=== PATIENT | male | born 1955 | race Caucasian/White ===

== ENCOUNTER 2020-10-25 11:55 | Inpatient (IN) | payer MEDICARE ==
[~2020-10-25] VITALS: Ht 170.2 cm; Wt 77.3 kg
[2020-10-25 13:03] LABS: BASOPHILS ABSOLUTE AUTO 0.05 K/mm3 (0.00-0.23); BASOPHILS PERCENT AUTO 0 % (0-2); EOSINOPHILS ABSOLUTE AUTO 0.01 K/mm3 (0.00-0.68); EOSINOPHILS PERCENT AUTO 0 % (0-6); Hemoglobin 16.5 g/dL (13.5-17.5); IMMATURE GRAN ABSOLUTE AUTO 0.11 K/mm3 (0.00-0.10); IMMATURE GRAN PERCENT AUTO 1 % (0-1); LYMPHOCYTES ABSOLUTE AUTO 0.77 K/mm3 (0.84-5.20); LYMPHOCYTES PERCENT AUTO 4 % (21-46); MONOCYTES ABSOLUTE AUTO 1.55 K/mm3 (0.16-1.47); MONOCYTES PERCENT AUTO 8 % (4-13); Mean Corpuscular HGB Conc 33.7 g/dL (31.5-36.5); Mean Corpuscular Volume 83 fL (80-100); Mean Platelet Volume 9.9 fL (9.1-12.4); NEUTROPHILS ABSOLUTE AUTO 18.27 K/mm3 (1.96-9.15); NEUTROPHILS PERCENT AUTO 88 % (41-73); Platelet Count 285 K/mm3 (150-400); RDW Coefficient Variation 12.6 % (11.7-14.2); RDW Standard Deviation 38.5 fL (35.1-46.3); White Blood Cell Count 20.76 K/mm3 (4.00-11.30)
[2020-10-25 13:22] LABS: Alanine Aminotransfer (ALT/SGP 19 U/L (12-78); Albumin, Blood 3.8 g/dL (3.4-5.0); Albumin/Globulin Ratio 0.9 (0.8-1.8); Alk Phos 67 U/L (50-136); Anion Gap 8 mmol/L (6-16); Aspartate Aminotrans (AST/SGOT 9 U/L (12-37); Bilirubin, Total 0.9 mg/dL (0.1-1.0); Blood Urea Nitrogen 10 mg/dL (8-24); Bun/Creatinine Ratio 9.5 (12.0-20.0); CO2, Blood 25 mmol/L (21-32); Calcium, Blood 9.1 mg/dL (8.5-10.1); Chloride, Blood 103 mmol/L (98-108); Creatinine, Blood 1.05 mg/dL (0.60-1.20); Globulin, Blood 4.1 g/dL (2.2-4.0); Glomerular Filtration Rate >60 (60-); Glucose, Blood 129 mg/dL (70-99); Potassium, Blood 3.8 mmol/L (3.5-5.5); Sodium, Blood 136 mmol/L (136-145); Total Protein, Blood 7.9 g/dL (6.4-8.2)
[2020-10-25 15:05] LABS: Source, Urine Voided
[2020-10-25] MEDS ORDERED: ATOR20 (15:07)
[2020-10-25] MEDS ORDERED: TAMS.4ER PO (15:07)
[2020-10-25 15:17] LABS: Appearance, Urine Clear (Clear); Bilirubin, Urine Neg (Neg); Blood, Urine 4+ (Neg); Color, Urine Yellow (P-Yellow); Glucose Qualitative, Urine Neg (Neg); Ketones, Urine Neg (Neg); Leukocyte Esterase, Urine 1+ (Neg); Nitrite, Urine Neg (Neg); Protein, Urine 2+ (Neg); Urobilinogen, Urine NORM (Normal)
[2020-10-25 15:43] LABS: Bacteria Few /hpf; Squamous Epithelial Cells Few /hpf (Few)
[2020-10-25] MEDS ORDERED: ATORVASTATIN CA20 MG PO (16:29)
--- NOTE | 2020-10-25 16:33 | NUR ---
PT RECENTLY HERE FROM ER [facility]IA [facility], REPORTS VOIDING RECENTLY. PT ABLE TO STAND AND GET SELF UNDRESSED INTO GOWN WITHOUT DIFFICULTY. History, Chart, Medications and Allergies reviewed before start of procedure. Lungs clear T/O to Auscultation. Patient confirms NPO status and agrees with scheduled surgery. Pre-Op teaching done. Pt verbalizes understanding.
--- NOTE | 2020-10-25 20:24 | NUR ---
PT ARRIVED FROM PACU AT APPROX 2014. POD#0 FOR RT SHERYL COLECTOMY. PT DROWSY, WAKING SPONTANEOUSLY. VS WNL. MIDLINE INDER C/D/I. HYPOACTIVE BT THROUGHOUT. LUNGS SOUNDS CLEAR. IVF INFUSING.
[2020-10-26 06:23] LABS: BASOPHILS ABSOLUTE AUTO 0.02 K/mm3 (0.00-0.23); BASOPHILS PERCENT AUTO 0 % (0-2); EOSINOPHILS PERCENT AUTO 0 % (0-6); Hematocrit 45.3 % (37.0-53.0); Hemoglobin 15.1 g/dL (13.5-17.5); IMMATURE GRAN ABSOLUTE AUTO 0.06 K/mm3 (0.00-0.10); IMMATURE GRAN PERCENT AUTO 0 % (0-1); LYMPHOCYTES ABSOLUTE AUTO 0.78 K/mm3 (0.84-5.20); LYMPHOCYTES PERCENT AUTO 4 % (21-46); MONOCYTES ABSOLUTE AUTO 0.92 K/mm3 (0.16-1.47); MONOCYTES PERCENT AUTO 5 % (4-13); Mean Corpuscular HGB 28.5 pg (26.0-34.0); Mean Corpuscular HGB Conc 33.3 g/dL (31.5-36.5); Mean Corpuscular Volume 86 fL (80-100); Mean Platelet Volume 10.1 fL (9.1-12.4); NEUTROPHILS ABSOLUTE AUTO 16.16 K/mm3 (1.96-9.15); NEUTROPHILS PERCENT AUTO 90 % (41-73); Platelet Count 260 K/mm3 (150-400); RDW Coefficient Variation 12.6 % (11.7-14.2); White Blood Cell Count 17.94 K/mm3 (4.00-11.30)
[2020-10-26 06:43] LABS: Anion Gap 6 mmol/L (6-16); Blood Urea Nitrogen 10 mg/dL (8-24); Bun/Creatinine Ratio 11.3 (12.0-20.0); CO2, Blood 25 mmol/L (21-32); Calcium, Blood 8.5 mg/dL (8.5-10.1); Chloride, Blood 102 mmol/L (98-108); Creatinine, Blood 0.89 mg/dL (0.60-1.20); Glomerular Filtration Rate >60 (60-); Glucose, Blood 145 mg/dL (70-99); Potassium, Blood 4.1 mmol/L (3.5-5.5); Sodium, Blood 133 mmol/L (136-145)
--- NOTE | 2020-10-26 14:14 | NUR ---
RELEASE UPDATE: PATIENT REQUESTED UPDATE TO HIS VERBAL RELEASE CONSENT FORM. UPDATE CONFIRMED WITH PATIENT AND WITH PARTNER MANAGER. FORM IN PATIENT BINDER.
--- NOTE | 2020-10-26 19:28 | NUR ---
END OF SHIFT: PATIENT RESTED MOST OF THE DAY. UP TO CHAIR X2 FOR 10 MIN AND 30 MIN. MILD CONFUSION PERSISTED THROUGHOUT THE DAY. IS FRIENDS WITH PATIENT IN 227 AND THEY VISITED FOR A FEW MINUTES THIS AFTERNOON. PATIENT BECAME RUDDIER IN COMPLEXION, ASSESSED FOR AGITATION AND TREMORS - NONE PRESENT. DENIES ETOH, SAYS HE USES MARIJUANA. DR CHECKED DRESSING, DID NOT CHANGE. NEW ABX HUNG AT 1800 WITH NEW TUBING. PATIENT STABLE THROUGHOUT SHIFT.
--- NOTE | 2020-10-26 19:40 | NUR ---
SHIFT SUMMARY PT POD #1 FOR HEMICOLECTOMY. INDER DRESSING AT MIDLINE SHOWS DRAINAGE AND SEEN BY SURGEON. NEEDS ENCOURAGEMENT TO GET UP AND AMBULATE. ENCOURAGED TO COUGH AND DEEP BREATHE. HTN BROUGHT TO THE ATTENTION OF THE HOSPITALIST AND ADVISED TO CONTINUE TO MONITOR. PT RESTING COMFORTABLY WITH HIS CALL LIGHT IN REACH.
--- NOTE | 2020-10-26 23:56 | NUR ---
PT COMPLAINING OF INDIGESTION. PT PUT HEAD OF BED UP AND INSTANTLY FELT LIKE HE HAD TO VOMIT. EMESIS BAG GIVEN TO PT AND PT HAD EMESIS X1 LIGHT GREEN/MUCOUS IN APPEARANCE. PT VERBALIZED HE FELT BETTER AND DECLINED THE NEED FOR NAUSEA MEDS. PT REPORTS SOME BURPING, BUT NO FLATUS. BTS X4 QUADRANTS REMAIN HYPOACTIVE AND ABD REMAINS MILDLY DISTENDED. WILL CONT TO MONITOR.
--- NOTE | 2020-10-27 04:10 | NUR ---
SHIFT SUMMARY PT REPORTS NOT FEELING WELL T/O NIGHT. EMESIS X2-LIGHT GREEN/MUCOUS. CONT TO DENY FLATUS, BUT IS OCCASSIONALLY BURPING. ABDOMEN REMAINS MILDLY DISTENDED AND HYPOACTIVE. TORADOL FOR PAIN MANAGEMENT. INDER DRESSING TO MIDLINE REMAINS UNCHANGED. IVF INFUSING PER ORDERS. PT SLOWLY JESSE ICE CHIPS. USING URINAL AT BEDSIDE. CALL LIGHT WITHIN REACH.
--- NOTE | 2020-10-27 10:23 | NUR ---
BP PLACED MSG OUT TO DR WINSLOW TO DISCUSS BP. ORDERS OBTAINED.
--- NOTE | 2020-10-27 16:26 | NUR ---
DR CARMENTRATE IN TO SEE PT.
--- NOTE | 2020-10-27 16:37 | NUR ---
DR WINSLOW IN TO SEE PT.
--- NOTE | 2020-10-27 17:59 | NUR ---
SUMMARY THIS AFTERNOON, PT WAS FOUND TO BE TACHY AT 134 AND HYPERTENSIVE. EKG SHOWED AFIB W/RVR IN 160S. OBTAINED ORDERS FOR HOSPITALIST CONSULT. DR ARANA CONSULTED AND PLACED ORDERS. PT PLACED ON TELE AND METOPROLOL GIVEN PER ORDERS. ORDERS OBTAINED FOR VASOTEC. ONE DOSE GIVEN OF VASOTEC PER ORDERS. [id number] AT THIS TIME PER CONCRETE CURER. PROTONIX GIVEN AND IV ABX INFUSING PER ORDERS. PT DENIES ANY NEEDS AT THIS TIME.
--- NOTE | 2020-10-27 18:34 | NUR ---
BP AND HR BP 171/119. HR 122. ADMINISTERED THIRD DOSE OF METOPROLOL PER ORDERS. REPORTED TO DR ARANA. IF HR CONTINUES TO BE GREATER THAN 120, ADVISED THAT NOC SHIFT TRANSFER TO PCU FOR FRANKLYN BETH.
--- NOTE | 2020-10-27 19:24 | NUR ---
REPORT GIVEN TO ONCOMING SHIFT.
--- NOTE | 2020-10-27 20:07 | NUR ---
BP AND HR: PT HR CONT TO TREND 120-130'S AFTER VASOTEC GIVEN. BP REMAINS ELEVATED 186/106. PT REP CHEST PRESSURE, DENIES SOB CO CHEST PAIN. CALL PLACED TO AL, PT VITALS, AND MEDS GIVEN REVIEWED. NEW ORDER FOR PRN LABETALOL RECEIVED. WILL CONT TO MONITOR CLOSELY.
[2020-10-28 04:20] LABS: BASOPHILS ABSOLUTE AUTO 0.04 K/mm3 (0.00-0.23); BASOPHILS PERCENT AUTO 0 % (0-2); EOSINOPHILS ABSOLUTE AUTO 0.05 K/mm3 (0.00-0.68); EOSINOPHILS PERCENT AUTO 0 % (0-6); Hematocrit 50.9 % (37.0-53.0); Hemoglobin 17.4 g/dL (13.5-17.5); IMMATURE GRAN ABSOLUTE AUTO 0.08 K/mm3 (0.00-0.10); IMMATURE GRAN PERCENT AUTO 1 % (0-1); LYMPHOCYTES ABSOLUTE AUTO 1.36 K/mm3 (0.84-5.20); LYMPHOCYTES PERCENT AUTO 8 % (21-46); MONOCYTES ABSOLUTE AUTO 1.58 K/mm3 (0.16-1.47); MONOCYTES PERCENT AUTO 9 % (4-13); Mean Corpuscular HGB 28.4 pg (26.0-34.0); Mean Corpuscular HGB Conc 34.2 g/dL (31.5-36.5); Mean Corpuscular Volume 83 fL (80-100); Mean Platelet Volume 9.9 fL (9.1-12.4); NEUTROPHILS ABSOLUTE AUTO 13.78 K/mm3 (1.96-9.15); NEUTROPHILS PERCENT AUTO 82 % (41-73); Platelet Count 364 K/mm3 (150-400); RDW Coefficient Variation 12.7 % (11.7-14.2); Red Blood Cell Count 6.13 M/mm3 (4.30-5.90); White Blood Cell Count 16.89 K/mm3 (4.00-11.30)
[2020-10-28 04:44] LABS: Magnesium, Blood 2.4 mg/dL (1.6-2.4)
[2020-10-28 04:47] LABS: Alanine Aminotransfer (ALT/SGP 26 U/L (12-78); Albumin, Blood 2.9 g/dL (3.4-5.0); Albumin/Globulin Ratio 0.6 (0.8-1.8); Alk Phos 79 U/L (50-136); Anion Gap 5 mmol/L (6-16); Aspartate Aminotrans (AST/SGOT 17 U/L (12-37); Bilirubin, Total 1.2 mg/dL (0.1-1.0); Blood Urea Nitrogen 14 mg/dL (8-24); Bun/Creatinine Ratio 18.5 (12.0-20.0); CO2, Blood 25 mmol/L (21-32); Calcium, Blood 8.9 mg/dL (8.5-10.1); Chloride, Blood 97 mmol/L (98-108); Creatinine, Blood 0.76 mg/dL (0.60-1.20); Globulin, Blood 4.5 g/dL (2.2-4.0); Glomerular Filtration Rate >60 (60-); Glucose, Blood 121 mg/dL (70-99); Phosphorus, Blood 2.4 mg/dL (2.5-4.9); Potassium, Blood 3.8 mmol/L (3.5-5.5); Sodium, Blood 127 mmol/L (136-145); Total Protein, Blood 7.4 g/dL (6.4-8.2)
--- NOTE | 2020-10-28 06:10 | NUR ---
POD 3 S/P HEMICOLECTOMY. PT BP AND HR REMIANED ELEVATED T/O NIGHT. HR TRENDING AFIB 90'S THIS AM. SYSTOLIC BP IMPROVED SOME AFTER PRN LABETALOL. PT CONT TO REP CHEST PRESSURE, DENIES CHEST PAIN/SOB. INDER DRESSING INTACT W/NO CHANGES IN DRNG. PAIN MGD PER EMAR. NO CHANGES IN ABD DISTENTION, BT HYPO, PT REP NO FLATUS YET, NO C/O N/V. IVF AND ABX CONT PER EMAR.
--- NOTE | 2020-10-28 17:53 | NUR ---
AT ABOUT 1125 TELE CALLED THIS RN, PT CONVERTED BACK TO NSR, HR IS 67. PT CONTINUES TO DENY CP, VSS. WILL CTM
--- NOTE | 2020-10-28 17:55 | NUR ---
DR. ARANA MADE AWARE OF CONVERSION TO NSR AT 1140
--- NOTE | 2020-10-28 17:56 | NUR ---
SUMMARY: PT IS POD3 SHERYL COLECTOMY. VSS, TELE WNL TODAY. PT DENIES CP, SOB. SURGICAL SITES ARE WNL. PT HAS AMBULATED IN HALLS TODAY AND SAT UP IN CHAIR. PT REPORTS PASSING FLATUS AND TOLERATED FULL LIQ DIET TONIGHT. MEFOXIN INFUSING, OTHERWISE FLUIDS AT TKO. 25MCG OF FENTANYL MANAGING PAIN WELL. NO ACUTE SAFETY CONCERNS AT THIS TIME. WILL REPORT TO RUI MIGUEL.
[2020-10-29 04:59] LABS: BASOPHILS ABSOLUTE AUTO 0.03 K/mm3 (0.00-0.23); BASOPHILS PERCENT AUTO 0 % (0-2); EOSINOPHILS ABSOLUTE AUTO 0.14 K/mm3 (0.00-0.68); EOSINOPHILS PERCENT AUTO 1 % (0-6); Hematocrit 47.4 % (37.0-53.0); Hemoglobin 16.3 g/dL (13.5-17.5); IMMATURE GRAN ABSOLUTE AUTO 0.03 K/mm3 (0.00-0.10); IMMATURE GRAN PERCENT AUTO 0 % (0-1); LYMPHOCYTES ABSOLUTE AUTO 1.12 K/mm3 (0.84-5.20); LYMPHOCYTES PERCENT AUTO 10 % (21-46); MONOCYTES ABSOLUTE AUTO 1.26 K/mm3 (0.16-1.47); MONOCYTES PERCENT AUTO 12 % (4-13); Mean Corpuscular HGB 27.9 pg (26.0-34.0); Mean Corpuscular HGB Conc 34.4 g/dL (31.5-36.5); Mean Corpuscular Volume 81 fL (80-100); Mean Platelet Volume 9.5 fL (9.1-12.4); NEUTROPHILS ABSOLUTE AUTO 8.27 K/mm3 (1.96-9.15); NEUTROPHILS PERCENT AUTO 76 % (41-73); Platelet Count 330 K/mm3 (150-400); RDW Coefficient Variation 12.3 % (11.7-14.2); RDW Standard Deviation 36.4 fL (35.1-46.3); Red Blood Cell Count 5.85 M/mm3 (4.30-5.90); White Blood Cell Count 10.85 K/mm3 (4.00-11.30)
[2020-10-29 05:25] LABS: Alanine Aminotransfer (ALT/SGP 27 U/L (12-78); Albumin, Blood 2.8 g/dL (3.4-5.0); Albumin/Globulin Ratio 0.7 (0.8-1.8); Alk Phos 71 U/L (50-136); Anion Gap 7 mmol/L (6-16); Aspartate Aminotrans (AST/SGOT 13 U/L (12-37); Bilirubin, Total 1.1 mg/dL (0.1-1.0); Blood Urea Nitrogen 17 mg/dL (8-24); Bun/Creatinine Ratio 20.1 (12.0-20.0); CO2, Blood 25 mmol/L (21-32); Calcium, Blood 8.3 mg/dL (8.5-10.1); Chloride, Blood 101 mmol/L (98-108); Creatinine, Blood 0.85 mg/dL (0.60-1.20); Glomerular Filtration Rate >60 (60-); Glucose, Blood 110 mg/dL (70-99); Magnesium, Blood 2.4 mg/dL (1.6-2.4); Phosphorus, Blood 2.7 mg/dL (2.5-4.9); Potassium, Blood 3.5 mmol/L (3.5-5.5); Sodium, Blood 133 mmol/L (136-145); Total Protein, Blood 6.8 g/dL (6.4-8.2); Troponin I <0.015 ng/mL (0.000-0.040)
--- NOTE | 2020-10-29 07:31 | NUR ---
SHIFT SUMMARY POD 4 LAP TO OPEN APPY c HEMICOLECTOMY AND MASS REMOVAL, A/O X4, VSS TILL MORNING VITALS WHICH SHOW HIGH BP OF SYSTOLIC OVER 200, VASOTEC GIVEN PER ORDER AND REPEAT BP AT LOWER LEVEL (DAY RN ADVISED OF THIS), DIET ADVANCE TO REG, TOLERATING PO AND PASSING FLATUS, PAIN MANAGED PER EMAR, NO OTHER ACUTE EVENTS THIS SHIFT. CALL LIGHT IN REACH, REPORT GIVEN TO DAY RN.
[2020-10-29] MEDS ORDERED: Acetaminophen325 M1 PO (10:52)
[2020-10-29] MEDS ORDERED: CEFU250T47 PO (10:55)
[2020-10-29] MEDS ORDERED: CRAN-MAX500 MG PO (10:57)
[2020-10-29] MEDS ORDERED: BENADRYL25 MG PO (10:59)
[2020-10-29] MEDS ORDERED: HYDR1TAB94 PO (11:02)
[2020-10-29] MEDS ORDERED: Prinivil10 MG PO (11:03)
[2020-10-29] MEDS ORDERED: METO25 PO (11:05)
[2020-10-29] MEDS ORDERED: ONDA4ODT PO (11:06)
[2020-10-29] MEDS ORDERED: PANT40 PO (11:07)
--- NOTE | 2020-10-29 17:14 | NUR ---
DISCHARGE SUMMARY PT POD #4 FOR APPY WITH HEMICOLECTOMY DUE TO AN APPENDICIDAL MASS. PT C/O PAIN ONCE THIS SHIFT AND TREATED PER EMR. PT HYPERTENSIVE AND BP MEDICATIONS ADJUSTED. PT REPORTS FLATUS BUT NO BM TODAY. STOMACH BECOMES SLIGHTLY UPSET WHEN EATING A REGULAR DIET AND INSTRUCTED TO EAT SMALL MEALS. INDER DRESSING REMOVED AND LEFT OPEN TO AIR AT DISCHARGE. SMALL AMOUNT OF DRAINAGE NOTED SO IT WAS COVERED WITH A MEDIPORE DRESSING. DISCHARGE INSTRUCTIONS PROVIDED TO PT AND PT EXHIBITED UNDERSTANDING. DISCHARGED AND DRIVEN HOME BY A FAMILY FRIEND.
== END 2020-10-29 17:15 | disposition home or self-care (01) | DRG 330 ==
LOC: ER 11:55 → SURS 15:53 → ER 18:00 → SURS 10-27 13:18
PROVIDERS: Family Medicine; Physician Assistant; ADMIT Surgery
PROC: 0DJD4ZZ Inspection of Lower Intestinal Tract, Percutaneous Endoscopic Approach (ICD-10-PCS; 2020-10-25)
PROC: 0DTF0ZZ Resection of Right Large Intestine, Open Approach (ICD-10-PCS; principal; 2020-10-25 18:00)
DX: K35.30 Acute appendicitis with localized peritonitis, without perforation or gangrene (principal); E87.1 Hypo-osmolality and hyponatremia; I16.0 Hypertensive urgency; I48.91 Unspecified atrial fibrillation; K21.9 Gastro-esophageal reflux disease without esophagitis; E78.5 Hyperlipidemia, unspecified; F12.10 Cannabis abuse, uncomplicated; N40.0 Benign prostatic hyperplasia without lower urinary tract symptoms; Z90.49 Acquired absence of other specified parts of digestive tract; Z98.890 Other specified postprocedural states; Z88.0 Allergy status to penicillin; Z53.31 Laparoscopic surgical procedure converted to open procedure; Z79.899 Other long term (current) drug therapy
CPT/HCPCS: 36415; 74177; 80048; 80053; 81001; 83690; 83735; 84100; 84484; 85025; 85651; 86140; 88309; 93005; 93010; 93306; 99285-25; A9270; C9113; J0360; J0694; J1100; J1650; J1885; J2250; J2405; J2543; J2704; J2710; J3010; J7050; J7120; Q9967

== ENCOUNTER → 2022-05-17 | Outpatient (CLI) | payer MEDICARE ==
[~2022-05-17] MED LIST: ATOR20; ATORVASTATIN CA20 MG PO; Acetaminophen325 M1 PO; BENADRYL25 MG PO; CEFU250T47 PO; CRAN-MAX500 MG PO; HYDR1TAB94 PO; METO25 PO; ONDA4ODT PO; PANT40 PO; Prinivil10 MG PO; TAMS.4ER PO
[2022-05-17 13:34] LABS: Source, Urine Clean Catch
[2022-05-17 17:54] LABS: Appearance, Urine Clear (Clear); Bilirubin, Urine Neg (Neg); Blood, Urine Neg (Neg); Color, Urine Yellow (P-Yellow); Glucose Qualitative, Urine Neg (Neg); Ketones, Urine Neg (Neg); Leukocyte Esterase, Urine Neg (Neg); Nitrite, Urine Neg (Neg); Protein, Urine Neg (Neg); Urobilinogen, Urine NORM (Normal)
== END | disposition home or self-care (01) ==
LOC: LAB SHORT 13:12 → LAB 13:12
PROVIDERS: Family Medicine
DX: N40.0 Benign prostatic hyperplasia without lower urinary tract symptoms (principal)
CPT/HCPCS: 81003